=== PATIENT | female | born 1945 | race African-American/Black ===

== ENCOUNTER 2020-06-21 04:08 | Day surgery (SDC) | payer OTHER ==
[2020-06-18 08:48] VITALS: BMI 39.1
[2020-06-21] MEDS ORDERED: LIDOCAINE HCL 1%, 10 MG/ML (20ML VIAL) ONE (07:24)
[2020-06-21] MEDS ORDERED: ONDANSETRON 4 MG/2 ML VIAL ONE (07:36)
[2020-06-21] MEDS ORDERED: PROPOFOL 20 ML ONE (07:36)
[2020-06-21] MEDS ORDERED: DEXAMETHASONE SOD PHOSPHATE 4 MG/1 ML VIAL ONE (07:36)
[2020-06-21] MEDS ORDERED: SUCCINYLCHOLINE CHLORIDE 200 MG/10 ML SYRINGE ONE (07:36)
[2020-06-21] MEDS ORDERED: MIDAZOLAM HCL 2 MG/2 ML SINGLE DOSE VIAL ONE (07:37)
[2020-06-21] MEDS ORDERED: BUPIVACAINE HCL/PF 0.5% (5 MG/ML) 30 ML VIAL IJ ONE ×2 (07:37→08:25)
[2020-06-21] MEDS ORDERED: KETOROLAC TROMETHAMINE 30 MG/1 ML VIAL ONE (07:37)
[2020-06-21] MEDS ORDERED: LIDOCAINE HCL 1%, 10 MG/ML (20ML VIAL) INF ONE ×2 (07:37→08:25)
[2020-06-21] MEDS ORDERED: ceFAZolin 2 GRAM PREMIX BAG IVPB ONE (08:15)
[2020-06-21 09:15] VITALS: PULSE 65
[2020-06-21 11:29] VITALS: BP 139/66; TEMP 97.1
[2020-06-21] MEDS ORDERED: ACETAMINOPHEN 325 MG TABLET (FP) PO PRN (11:36)
[2020-06-21] MEDS ORDERED: ONDANSETRON 4 MG/2 ML VIAL IVPUSH PRN (11:36)
[2020-06-21] MEDS ORDERED: LACTATED RINGERS SOLUTION 1,000 ML IV SCH (11:45)
== END 2020-06-21 11:29 | disposition home or self-care (01) ==
LOC: JASU-SURG 04:08
PROVIDERS: ATTEND Orthopaedic Surgery
PROC: 01N50ZZ Release Median Nerve, Open Approach (ICD-10-PCS; principal; 2020-06-21 08:00)
DX: G56.01 Carpal tunnel syndrome, right upper limb (principal); M65.831 Other synovitis and tenosynovitis, right forearm
CPT/HCPCS: 88304-TC

== ENCOUNTER 2020-08-16 10:42 | Emergency (ER) | payer OTHER ==
[2020-08-16 11:09] VITALS: BMI 39.6
[2020-08-16] MEDS ORDERED: LACTATED RINGERS SOLUTION 1,000 ML IV STA (11:30)
[2020-08-16] MEDS ORDERED: FAMOTIDINE 20 MG/50 ML IVPB 20 MG/50 ML MG IVPB ONE ×2 (11:30→11:40)
[2020-08-16] MEDS ORDERED: ONDANSETRON 4 MG/2 ML VIAL IVPUSH ONE (11:30)
[2020-08-16] MEDS ORDERED: ONDANSETRON 4 MG/2 ML VIAL ONE (11:38)
[2020-08-16 12:20] LABS: BASO % 0.6 % (0-2.0); EOS % 2.1 % (0-4.5); HEMATOCRIT 40.1 % (32.4-45.2); HEMOGLOBIN 12.8 GM/dL (10.7-15.3); LYMPH % 31.6 % (8-40); MCHC 31.9 g/dl (32.0-36.0); MEAN PLT VOLUME 8.8 fl (7.5-11.1); MONO % 8.5 % (3.8-10.2); NEUT % 57.2 % (42.8-82.8); PLATELET COUNT 308 10^3/uL (134-434); RBC 4.41 M/mm3 (3.60-5.2); RDW 14.6 % (11.6-15.6); WHITE BLOOD COUNT 6.8 K/mm3 (4.0-10.0)
[2020-08-16 12:39] LABS: CHLORIDE 108 mmol/L (98-107); SODIUM 143 mmol/L (136-145)
[2020-08-16 12:42] LABS: ALBUMIN 3.9 g/dl (3.4-5.0); ANION GAP 8 MMOL/L (8-16); BLOOD UREA NITROGEN 28.3 mg/dL (7-18); CALCIUM 9.5 mg/dL (8.5-10.1); CO2 27 mmol/L (21-32); GLUCOSE,RANDOM 104 mg/dL (74-106); LIPASE 166 U/L (73-393)
[2020-08-16 12:45] LABS: CREATININE 1.3 mg/dL (0.55-1.3); SGOT/AST 100 U/L (15-37); SGPT/ALT 85 U/L (13-61)
[2020-08-16 12:47] LABS: BILIRUBIN,TOTAL 0.7 mg/dL (0.2-1); TOT PROT 7.2 g/dl (6.4-8.2)
[2020-08-16 12:48] LABS: ALK PHOS 127 U/L (45-117)
[2020-08-16 14:56] VITALS: BP 138/80; PULSE 64; TEMP 98
== END 2020-08-16 15:00 | disposition home or self-care (01) ==
LOC: JER 10:42
PROC: 3E033GC Introduction of Other Therapeutic Substance into Peripheral Vein, Percutaneous Approach (ICD-10-PCS; principal; 2020-08-16)
PROC: 3E033GC Introduction of Other Therapeutic Substance into Peripheral Vein, Percutaneous Approach (ICD-10-PCS; 2020-08-16)
DX: R11.2 Nausea with vomiting, unspecified (principal)
CPT/HCPCS: 36415; 71045-TC-FY; 80053; 82550; 83690; 84484; 85025; 93005; 93010; 99285-25

== ENCOUNTER 2020-08-19 07:00 | Day surgery (SDC) | payer OTHER ==
[2020-08-18 10:22] VITALS: BMI 39.6
[2020-08-19] MEDS ORDERED: LIDOCAINE HCL 1%, 10 MG/ML (20ML VIAL) ONE (07:21)
[2020-08-19] MEDS ORDERED: BUPIVACAINE HCL/PF 2.5 MG/ML - 30 ML VIAL IJ ONE (07:22)
[2020-08-19] MEDS ORDERED: BUPIVACAINE HCL 100 ML ONE (07:23)
[2020-08-19] MEDS ORDERED: MIDAZOLAM HCL 2 MG/2 ML SINGLE DOSE VIAL ONE (08:44)
[2020-08-19] MEDS ORDERED: PROPOFOL 20 ML ONE (08:44)
[2020-08-19] MEDS ORDERED: oxyCODONE HCL 5 MG TABLET PO PRN (08:57)
[2020-08-19] MEDS ORDERED: ONDANSETRON 4 MG/2 ML VIAL IVPUSH PRN (08:57)
[2020-08-19] MEDS ORDERED: LACTATED RINGERS SOLUTION 1,000 ML IV SCH (09:00)
[2020-08-19] MEDS ORDERED: DEXAMETHASONE SOD PHOSPHATE 4 MG/1 ML VIAL ONE (09:21)
[2020-08-19] MEDS ORDERED: ceFAZolin SODIUM 1 GM VIAL ONE (09:21)
[2020-08-19 11:30] VITALS: TEMP 97.1
[2020-08-19 12:07] VITALS: BP 132/67; PULSE 49
== END 2020-08-19 12:00 | disposition home or self-care (01) ==
LOC: FASU 07:00
PROVIDERS: ATTEND Orthopaedic Surgery
PROC: 0LB60ZZ Excision of Left Lower Arm and Wrist Tendon, Open Approach (ICD-10-PCS; 2020-08-19)
PROC: 0LB60ZZ Excision of Left Lower Arm and Wrist Tendon, Open Approach (ICD-10-PCS; 2020-08-19)
PROC: 0LB60ZZ Excision of Left Lower Arm and Wrist Tendon, Open Approach (ICD-10-PCS; 2020-08-19)
PROC: 0LB60ZZ Excision of Left Lower Arm and Wrist Tendon, Open Approach (ICD-10-PCS; 2020-08-19)
PROC: 0LB60ZZ Excision of Left Lower Arm and Wrist Tendon, Open Approach (ICD-10-PCS; 2020-08-19)
PROC: 0LB60ZZ Excision of Left Lower Arm and Wrist Tendon, Open Approach (ICD-10-PCS; 2020-08-19)
PROC: 0LB60ZZ Excision of Left Lower Arm and Wrist Tendon, Open Approach (ICD-10-PCS; 2020-08-19)
PROC: 0LB60ZZ Excision of Left Lower Arm and Wrist Tendon, Open Approach (ICD-10-PCS; 2020-08-19)
PROC: 0LB60ZZ Excision of Left Lower Arm and Wrist Tendon, Open Approach (ICD-10-PCS; 2020-08-19)
PROC: 01N50ZZ Release Median Nerve, Open Approach (ICD-10-PCS; principal; 2020-08-19 09:40)
DX: G56.02 Carpal tunnel syndrome, left upper limb (principal); M65.9 Synovitis and tenosynovitis, unspecified
CPT/HCPCS: 88304-TC; 94760

== ENCOUNTER 2022-03-15 17:08 | Emergency (ER) | payer OTHER ==
[2022-03-15 18:02] VITALS: RESP 16
[2022-03-15 18:20] VITALS: BP 143/80; PULSE 58; TEMP 98; BMI 38.2
[2022-03-15] MEDS ORDERED: ACETAMINOPHEN 500 MG TABLET (FP) PO ONE (20:38)
[2022-03-15] MEDS ORDERED: ACETAMINOPHEN 325 MG TABLET (FP) ONE (20:40)
== END 2022-03-16 01:31 | disposition home or self-care (01) ==
LOC: JER 17:08
DX: S05.12XA Contusion of eyeball and orbital tissues, left eye, initial encounter (principal); W19.XXXA Unspecified fall, initial encounter
CPT/HCPCS: 70450-TC; 70486-TC; 71045-TC-FY; 72125-TC; 72128-TC; 72131-TC; 72170-TC-FY; 73030-TC-RT-FY; 73590-TC-LT-FY; 73590-TC-RT-FY; 99285-25